=== PATIENT | female | born 1965 | race Caucasian/White ===

== ENCOUNTER 2021-01-28 10:49 | Emergency (ER) | payer OTHER ==
[2021-01-28] MEDS ORDERED: ACETAMINOPHEN 500 MG TABLET (FP) PO ONE (11:00)
[2021-01-28 11:13] VITALS: BP 140/71; PULSE 74; TEMP 98.3; BMI 25.0
[2021-01-28] MEDS ORDERED: ACETAMINOPHEN 500 MG TABLET (FP) ONE (11:13)
== END 2021-01-28 12:35 | disposition home or self-care (01) ==
LOC: FER 10:49
DX: M25.571 Pain in right ankle and joints of right foot (principal)
CPT/HCPCS: 73610-TC-RT-FY; 73630-TC-RT-FY; 99283-25

== ENCOUNTER 2022-07-16 15:15 | Emergency (ER) | payer OTHER ==
[2022-07-16 15:43] VITALS: BP 126/72; PULSE 82; RESP 16; TEMP 97.9; BMI 27.1
[2022-07-16] MEDS ORDERED: SODIUM CHLORIDE 0.9% 500 ML INFUS.BAG IV ONE ×2 (15:48→16:01)
[2022-07-16] MEDS ORDERED: ONDANSETRON 4 MG/2 ML VIAL IVPUSH ONE (15:48)
[2022-07-16] MEDS ORDERED: FAMOTIDINE 20 MG/50 ML IVPB 20 MG/50 ML MG IVPB ONE ×2 (15:48→15:52)
[2022-07-16] MEDS ORDERED: ONDANSETRON 4 MG/2 ML VIAL ONE (15:52)
[2022-07-16 16:17] LABS: HEMATOCRIT 45.8 % (32.4-45.2); HEMOGLOBIN 15.6 G/dL (10.7-15.3); MCH 30.8 pg (25.7-33.7); MEAN CELL VOLUME 90.5 fl (80-96); MEAN PLT VOLUME 9.7 fl (7.5-11.1); RBC 5.06 10^6/uL (3.60-5.2); RDW 13.6 % (11.6-15.6); WHITE BLOOD COUNT 7.9 10^3/uL (4.0-10.8)
[2022-07-16 16:30] LABS: ALBUMIN 4.5 g/dl (3.4-5.0); BILIRUBIN,TOTAL 0.9 mg/dl (0.2-1); CALCIUM 9.6 mg/dl (8.5-10); CREATININE 0.8 mg/dl (0.55-1.3)
== END 2022-07-16 18:20 | disposition home or self-care (01) ==
LOC: FER 15:15
PROC: 3E033GC Introduction of Other Therapeutic Substance into Peripheral Vein, Percutaneous Approach (ICD-10-PCS; principal; 2022-07-16)
PROC: 3E033GC Introduction of Other Therapeutic Substance into Peripheral Vein, Percutaneous Approach (ICD-10-PCS; 2022-07-16)
DX: R11.2 Nausea with vomiting, unspecified (principal); R19.7 Diarrhea, unspecified
CPT/HCPCS: 0241U-QW; 36415; 80053; 84439; 84443; 85027; 99284-25